=== PATIENT | male | born 1985 | race African-American/Black ===

== ENCOUNTER 2017-01-13 18:58 | Emergency (ER) | payer SELFPAY | END 2017-01-14 01:56 | disposition left against medical advice (07) | LOC: ER 18:58 | DX: Z53.21 Procedure and treatment not carried out due to patient leaving prior to being seen by health care provider (principal) ==

== ENCOUNTER 2017-10-06 20:23 | Emergency (ER) | payer SELFPAY | END 2017-10-06 21:55 | disposition left against medical advice (07) | LOC: ER 21:51 | DX: Z53.21 Procedure and treatment not carried out due to patient leaving prior to being seen by health care provider (principal) ==

== ENCOUNTER 2018-01-25 19:20 | Emergency (ER) | payer MEDICAID ==
[~2018-01-25] VITALS: Ht 241.3 cm; Wt 104.8 kg
[2018-01-25 20:00] VITALS: BP 163/80
[2018-01-25] MEDS ORDERED: SILVER SULFADIAZINE 1% CREAM 25GM TOP ONE (20:00)
[2018-01-25] MEDS ORDERED: IBUPROFEN 800MG TABLET PO ONE (20:00)
[2018-01-25] MEDS ORDERED: TETANUS, DIPHTHERIA, PERTUSSIS VAC/PF 0.5ML (>7YR OLD) IM ONE (20:00)
== END 2018-01-25 20:45 | disposition home or self-care (01) ==
LOC: ER 20:33
DX: T23.222A Burn of second degree of single left finger (nail) except thumb, initial encounter (principal); T31.0 Burns involving less than 10% of body surface; X17.XXXA Contact with hot engines, machinery and tools, initial encounter; Y93.89 Activity, other specified; Y92.89 Other specified places as the place of occurrence of the external cause; Y99.8 Other external cause status; Z90.49 Acquired absence of other specified parts of digestive tract
CPT/HCPCS: 16020; 90471; 90715; 99284